=== PATIENT | female | born 1980 | race Caucasian/White ===

== ENCOUNTER 2019-06-07 15:23 | Inpatient (IN) | payer BC, MEDICAID ==
[2019-06-07] VITALS (16 sets, daily range): BP systolic 121–181; BP diastolic 76–98
[~2019-06-07] VITALS: Ht 160 cm; Wt 90.6 kg
--- NOTE | 2019-06-07 15:23 | NUR ---
ANA ROSA PALUMBO admitted to room 3319-1, with an admitting diagnosis of post dates , on 06/07/19 from home via ambulation, accompanied by s/o.ANA ROSA PALUMBO introduced to surroundings, call light, bed controls, phone, TV, temperature control, lights, meal times, smoking policy, visitor policy, side rail policy, bathrooms and showers. Patient Rights given to patient in the handbook. ANA ROSA PALUMBO verbalizes understanding that [facility] is not responsible for the loss or damage to any personal effects or valuables that are kept in the patients posession during their hospitalization. The following Patient Care Plans were discussed with the patient: Discharge Planning, pain management, labor plan of care. ANA ROSA PALUMBO verbalizes understanding of Interdisciplinary Patient Education. Patient and/or family were informed about the Rapid Response Team and its purpose.
[2019-06-07] MEDS ORDERED: MINERAL OIL CONCENTRATE 99.9% 15 ML UDC TOP PRN (17:30)
[2019-06-07 17:31] LABS: BASOPHILS % (AUTO) 0 % (0-10); EOSINOPHILS % (AUTO) 1 % (0-10); HEMATOCRIT 32 % (35-52); HEMOGLOBIN 10.6 G/DL (11.5-16.0); LYMPHOCYTES # (AUTO) 1.6 X 10^3 (1.0-4.0); LYMPHOCYTES % (AUTO) 19 % (12-44); MEAN CORPUSCULAR HEMOGLOBIN 30 PG (25-34); MEAN CORPUSCULAR HGB CONC 33 G/DL (32-36); MEAN CORPUSCULAR VOLUME 90 FL (80-99); MEAN PLATELET VOLUME 11.5 FL (7.4-10.4); MONOCYTES # (AUTO) 0.6 X 10^3 (0.0-1.0); MONOCYTES % (AUTO) 7 % (0-12); NEUTROPHILS # (AUTO) 6.4 X 10^3 (1.8-7.8); NEUTROPHILS % (AUTO) 74 % (42-75); PLATELET COUNT 219 10^3/uL (130-400); RED CELL DISTRIBUTION WIDTH 14.2 % (10.0-14.5); WHITE BLOOD COUNT 8.6 10^3/uL (4.3-11.0)
--- NOTE | 2019-06-07 19:21 | NUR ---
This RN called Dr. Escobar to confirm pitocin order without also starting maintenance fluids. Dr. Escobar voiced that it was against her medical advice but after voicing this concern to the patient, the patient still refused despite the provided education.
[2019-06-07] MEDS: OXYTOCIN/NORMAL SALINE 500 ML IV SCH (20:03)
[2019-06-07] MEDS: CATHETER FLUSH 10 ML SYR IV SCH (22:00)
[2019-06-08] VITALS (65 sets, daily range): BP systolic 114–190; BP diastolic 63–98
[2019-06-08] MEDS ORDERED: fentaNYL INJECTION 100 MCG/2 ML AMP ONE ×3 (00:05→11:07)
[2019-06-08] MEDS: fentaNYL INJECTION 100 MCG/2 ML AMP IVP PRN ×2 (00:09→15:59)
[2019-06-08] MEDS ORDERED: SUFENTA 0.6MCG/ML BUPIVA 0.125 100 ML ONE (00:45)
[2019-06-08] MEDS ORDERED: BUPIVACAINE 0.25% 30 ML (SENSORCAINE) VIAL ONE (01:12)
--- NOTE | 2019-06-08 01:18 | NUR ---
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 Procedure explained, consent reviewed and signed by anesthesia. Questions answered to patient's satisfaction. Time out taken to verify correct patient/procedure. Patient up to side of bed, assisted into sitting position. Betadine prep done x3 and sterile drape applied. Local done, see anesthesia record. Test dose given, see anesthesia record for drug and dosage. Epidural catheter secured in place. Epidural placement complete. Assisted back into bed, monitors adjusted. Epidural dosed, see anesthesia record. Epidural of Sufenta/Bupvicaine @___12___cc/hr stated per pump. Patient tolerated procedure well.
[2019-06-08] MEDS ORDERED: LACTATED RINGERS 1,000 ML IV SCH ×2 (01:25→11:24)
[2019-06-08] MEDS ORDERED: NALOXONE 0.4 MG/ML 1 ML (NARCAN) VIAL IV PRN ×2 (01:30)
[2019-06-08] MEDS ORDERED: METOCLOPRAMIDE INJ 10 MG/2 ML (REGLAN) IV PRN (01:30)
[2019-06-08] MEDS ORDERED: diphenhydrAMINE 50 MG/ML INJ (BENADRYL) IV PRN (01:30)
[2019-06-08] MEDS: EPIDURAL (SUFENTA 0.6MCG/ML BUPIVA 0.125%) 100 ML BAG EPI PRN ×2 (01:47→09:43)
[2019-06-08] MEDS ORDERED: ONDANSETRON 4 MG/2 ML (SDV) Z0FRAN ONE (02:27)
[2019-06-08] MEDS: ONDANSETRON 4 MG/2 ML (SDV) Z0FRAN IV PRN ×3 (02:30→16:00)
[2019-06-08] MEDS ORDERED: NS IV 1000 ML 1,000 ML ONE ×2 (03:14→18:41)
[2019-06-08] MEDS ORDERED: NS 100 ML (IVPB) BAG IR ONE (03:15)
[2019-06-08] MEDS: NS 100 ML (IVPB) BAG IR SCH ×2 (03:21→08:30)
--- NOTE | 2019-06-08 07:10 | NUR ---
Dr. Escobar notified of additional position changes but baby not able to tolerate. En route to hospital. Orders received to turn pitocin off.
[2019-06-08] MEDS ORDERED: CITRIC ACID/SOB CIT (BICITRA) 30 ML UDC ONE (10:46)
[2019-06-08] MEDS ORDERED: FAMOTIDINE 20MG/2ML IV (PEPCID) ONE (10:46)
[2019-06-08] MEDS ORDERED: ceFAZolin 2 GM IV Premixed 50 ML ONE (10:58)
--- NOTE | 2019-06-08 11:03 | Progress Note-Pre Operative ---
Pre-Operative Progress Note H&P Reviewed The H&P was reviewed, patient examined and no changes noted. Date Seen by Provider: Jun 08, 2019 Time Seen by Provider: 11:00 Date H&P Reviewed: Jun 08, 2019 Time H&P Reviewed: 10:45 Pre-Operative Diagnosis: Intrauteirne Pregnanct at 40 5/7 weeks 2. Secondary Arrest of MARI Rangel DO Jun 08, 2019 11:03 POS
--- NOTE | 2019-06-08 11:03 | History & Physical-OB ---
OB - Chief Complaint & HPI Date/Time Date of Admission: Date of Admission: Jun 07, 2019 at 15:23 Date seen by a Provider: Jun 07, 2019 Time Seen by a Provider: 16:00 Chief Complaint/History OB-Reason for Admission/Chief: Induction of Labor Hx : 7 Hx Para: 1 Expected Date of Delivery: May 27, 2019 Gestational Age in Weeks: 41 Gestational Age in Days: 4 Indication for induction: post dates Admission Nurse Assessment Rev: Yes Allergies and Home Medications Allergies Coded Allergies: No Known Drug Allergies (Unverified , 06/07/19) Patient Home Medication List Home Medication List Reviewed: Yes OB - History Hx of Present Ultrasounds: Normal mid trimester US Obstetrical Complications: None Medical Complications: None Patient Past Medical History hypothyroidism Social History/Family History Recent Infectious Disease Expo: No Alcohol Use: Denies Use Recreational Drug Use: No Immunizations Hepatitis A: Yes Hepatitis B: Yes OB - Admission Exam Physical Exam Vitals: Vital Signs 06/08/19 06/08/19 06/08/19 06/08/19 01:00 02:27 09:36 09:51 Temp 36.1 Pulse 67 Resp 18 B/P (MAP) 145/86 (105) Pulse Ox 99 O2 Delivery Room Air O2 Flow Rate 10.00 HEENT: NCAT Lungs: Clear Abdomen: Gravid Extremities: Normal Reflexes: Normal Cervical Dilatation: 7cm Effacement: 50% Station: -2 Membranes: Intact Amniotic Fluid: Clear Heart Rate: 140's Accelerations: Accelerations Present Decelerations: Variable Decelerations Short Term Variability: Present Nat Instructor Variability: Average (6-25) Contractions on Admission: < 5 Minutes Apart Labs Laboratory Tests Test 06/07/19 15:38 Range/Units White Blood Count 8.6 4.3-11.0 10^3/uL Red Blood Count 3.58 L 4.35-5.85 10^6/uL Hemoglobin 10.6 L 11.5-16.0 G/DL Hematocrit 32 L 35-52 % Mean Corpuscular Volume 90 80-99 FL Mean Corpuscular Hemoglobin 30 25-34 PG Mean Corpuscular Hemoglobin Concent 33 32-36 G/DL Red Cell Distribution Width 14.2 10.0-14.5 % Platelet Count 219 130-400 10^3/uL Mean Platelet Volume 11.5 H 7.4-10.4 FL Neutrophils (%) (Auto) 74 42-75 % Lymphocytes (%) (Auto) 19 12-44 % Monocytes (%) (Auto) 7 0-12 % Eosinophils (%) (Auto) 1 0-10 % Basophils (%) (Auto) 0 0-10 % Neutrophils # (Auto) 6.4 1.8-7.8 X 10^3 Lymphocytes # (Auto) 1.6 1.0-4.0 X 10^3 Monocytes # (Auto) 0.6 0.0-1.0 X 10^3 Eosinophils # (Auto) 0.0 0.0-0.3 10^3/uL Basophils # (Auto) 0.0 0.0-0.1 10^3/uL OB - Assessment/Plan/Diagnosis Assessment Admission Dx Induction of labor at 41 4/7 wga. Admission Status: Inpatient Order (span 2 midnights) Reason for Inpatient Admission: Induction of labor. Plan Induction Method: AROM Other Plan Rupture of membranes. Initiate pitocin if failure to progress. 06/08- Failure to progress with variable decels despite changing position. I suspect OP position with large for gestational age infant. Consult Dr. Garcia for . Patient and agreeable. DENTON AGUILAR MD Jun 08, 2019 11:03 POS
[2019-06-08] MEDS ORDERED: LIDOCAINE PF 2% 5 ML (XYLOCAINE) VIAL ONE (11:07)
--- NOTE | 2019-06-08 11:27 | NUR ---
REFER TO LABOR FLOW SHEET.
[2019-06-08] MEDS ORDERED: BUPIVACAINE 0.5% 30 ML (SENSORCAINE) VIAL ONE (11:30)
[2019-06-08] MEDS ORDERED: METOCLOPRAMIDE INJ 10 MG/2 ML (REGLAN) IV ONE (11:30)
[2019-06-08] MEDS ORDERED: FAMOTIDINE 20MG/2ML IV (PEPCID) IV ONE (11:30)
[2019-06-08] MEDS ORDERED: CITRIC ACID/SOB CIT (BICITRA) 30 ML UDC PO ONE (11:30)
[2019-06-08] MEDS ORDERED: KETAMINE/NaCl 50 MG/5 ML SYRINGE (ED ONLY) ONE (11:45)
[2019-06-08] MEDS ORDERED: KETOROLAC 30 MG/ML VIAL ONE (12:04)
--- NOTE | 2019-06-08 12:57 | Operative Report ---
Operative Report Date of Procedure/Surgery Jun 08, 2019 Surgeon (s) MARI TAVAREZ DO Interim Controller (s): Hilda Frank (MS 3) Post-Operative Diagnosis Intrauterine at 41 5/7 weeks 2. Secondary Arrest of Dilation 3. Repetitive Variable Decelerations 4. Persistent Occiput Posterior Procedure Performed Primary Low Transverse Description of Procedure Anesthesia Type: EPI Estimated blood loss (mL): 700 ml Specimen(s) collected/removed Placenta Description of the Procedure Ms. Shepard was taken to the Operating Room with IV fluids running. Once in the OR, she was prepped and draped in the normal sterile fashion. Anesthesia was tested and found to be adequate. A pfannesteil skin incision was made and carried down to the underlying layer of the fascia. The fascia was nicked in the midline, extended laterally. The fascia was elevated and the rectus muscle was dissected off sharply. Then, the rectus was in the midline. The parietal peritoneum was entered sharply and extended superiorly and inferiorly. The vesicouterine peritoneum was identified and entered sharply and extended laterally. The bladder flap was created digitally. The bladder blade was inserted. A transverse incision was made on the lower uterine segment and extended laterally. The vertex was in a LOP presentation, delivered and orally and nasally suctioned immediately. A viable male infant delivered without complications. The cord was doubly clamped and cut. [place] handed off to the waiting Pediatric Caregiver where NRP protocol was followed. Cord blood was obtained. The placenta was manually extracted. The uterus was exteriorized and cleared of all clots and debris. The uterine incision was first closed with a 0-Vicryl in a running locked fashion. Then a second suture of the same type was placed as an imbricating layer. The vesicouterine peritoneum was approximated with 3-0 Vicryl. There was a small uterine fibroid noted on the posterior aspect of the uterus--it was excised and 0-Vicryl figure of eight stitch was placed. Surgi-seal was placed on this area. The uterus was returned to the pelvic cavity. The parietal peritoneum was closed with 3-0 Vicryl. The fascia was approximated with 0-Vicryl. The subcutaneous tissues were closed with 3-0 Plain Gut. The skin was approximated with 4-0 Monocryl in a subcuticular manner. A sterile bandage was applied. Sponge, instrument, and needle counts were correct x 3. Both mom and were stable. Findings of the Procedure A viable male in LOP presentation . 9,9. Weight 8 lb 13 oz. EBS 700 ml. IV Fluids 500 ml. Urine Output 100 ml. Allergies and Home Medications Allergies Coded Allergies: codeine (Verified Allergy, Unknown, 06/08/19) iodine (Verified Allergy, Unknown, 06/08/19) Patient Home Medication List Home Medication List Reviewed: Yes MARI TAVAREZ DO Jun 08, 2019 12:57 POS
--- NOTE | 2019-06-08 13:57 | NUR ---
ANA ROSA ROBERTS presented to [facility] via BED from [place], accompanied by THIS RN AND S/O AFTER HAVING A PRIMARY DELIVERY. ANA ROSA ROBERTS oriented to bed controls, call light, TV, heat, and A/C controls. IV TUBING CONVERTED TO PUMP TUBING, SCDS ON CALVES BILATERALLY. MONTES TO D/D.
--- NOTE | 2019-06-08 14:15 | NUR ---
FFU/0, MODERATE VAG FLOW, NO CLOTS. VISITORS TO BEDSIDE. CALL LIGHT WITHIN REACH.
[2019-06-08] MEDS: OXYTOCIN/NORMAL SALINE 500 ML IV SCH (15:44)
[2019-06-08] MEDS ORDERED: OXYTOCIN/NORMAL SALINE 500 ML IV SCH (16:49)
[2019-06-08] MEDS ORDERED: fentaNYL INJECTION 100 MCG/2 ML AMP IVP PRN (17:00)
[2019-06-08] MEDS ORDERED: TETANUS,DIPTH,PERTUSS P/F (BOOSTRIX) 0.5 ML VIAL IM SCH (17:00)
[2019-06-08] MEDS ORDERED: MEASLES,MUMPS,RUBELLA 1 EA INJ SC SCH (17:00)
[2019-06-08] MEDS ORDERED: ONDANSETRON 4 MG/2 ML (SDV) Z0FRAN IVP PRN (17:00)
[2019-06-08] MEDS: KETOROLAC 30 MG/ML VIAL IV SCH (18:27)
[2019-06-08] MEDS: METOCLOPRAMIDE 10 MG (REGLAN) TAB PO SCH (19:32)
[2019-06-08] MEDS: ACETAMINOPHEN 500 MG TAB (TYLENOL) PO SCH (19:32)
[2019-06-08] MEDS: DOCUSATE SODIUM 100 MG (COLACE) CAP PO SCH (19:32)
[2019-06-08] MEDS: NS IV 1000 ML 1,000 ML IV SCH (20:08)
[2019-06-08] MEDS: LACTATED RINGERS 1,000 ML IV SCH (21:01)
[2019-06-08] MEDS: CATHETER FLUSH 10 ML SYR IV SCH ×3 (21:01→22:46)
[2019-06-09] VITALS (10 sets, daily range): BP systolic 118–160; BP diastolic 58–95
[2019-06-09] MEDS: NS IV 1000 ML 1,000 ML IV SCH (00:11)
[2019-06-09] MEDS: KETOROLAC 30 MG/ML VIAL IV SCH ×3 (00:12→14:12)
[2019-06-09] MEDS: METOCLOPRAMIDE 10 MG (REGLAN) TAB PO SCH ×4 (00:18→20:59)
[2019-06-09] MEDS: ACETAMINOPHEN 500 MG TAB (TYLENOL) PO SCH ×4 (00:18→20:21)
[2019-06-09] MEDS: LACTATED RINGERS 1,000 ML IV SCH (04:13)
[2019-06-09] MEDS ORDERED: BISACODYL 10 MG SUPP (DULCOLAX) PR ONE (05:00)
[2019-06-09] MEDS ORDERED: MILK OF MAGNESIA 400 MG/5 ML 30 ML UDC PO ONE (05:00)
[2019-06-09 05:39] LABS: BASOPHILS % (AUTO) 0 % (0-10); EOSINOPHILS % (AUTO) 1 % (0-10); LYMPHOCYTES # (AUTO) 1.2 X 10^3 (1.0-4.0); LYMPHOCYTES % (AUTO) 18 % (12-44); MEAN CORPUSCULAR HEMOGLOBIN 30 PG (25-34); MEAN CORPUSCULAR HGB CONC 33 G/DL (32-36); MEAN CORPUSCULAR VOLUME 91 FL (80-99); MEAN PLATELET VOLUME 9.7 FL (7.4-10.4); MONOCYTES # (AUTO) 0.4 X 10^3 (0.0-1.0); MONOCYTES % (AUTO) 6 % (0-12); NEUTROPHILS # (AUTO) 5.2 X 10^3 (1.8-7.8); NEUTROPHILS % (AUTO) 75 % (42-75); PLATELET COUNT 157 10^3/uL (130-400); RED CELL DISTRIBUTION WIDTH 14.2 % (10.0-14.5); WHITE BLOOD COUNT 6.9 10^3/uL (4.3-11.0)
[2019-06-09 05:43] LABS: HEMATOCRIT 20 % (35-52); HEMOGLOBIN 6.6 G/DL (11.5-16.0)
[2019-06-09] MEDS: CATHETER FLUSH 10 ML SYR IV SCH ×2 (06:58)
[2019-06-09] MEDS ORDERED: NS IV 500 ML 500 ML ONE (07:26)
[2019-06-09] MEDS: DOCUSATE SODIUM 100 MG (COLACE) CAP PO SCH ×2 (09:00→21:00)
--- NOTE | 2019-06-09 09:31 | Progress Note ---
Standard Progress Note Progress Notes/Assess & Plan Date Seen by a Provider: Jun 09, 2019 Time Seen by a Provider: 09:20 Progress/Assessment & Plan Subjective: Ms. Shepard is POD#1 from a Primary Low Transverse . She admits to being very sore in her lower abdomen. Otherwise, she states that she is doing well. Admits to moving her bowels. Objective: Vital signs are stable. Hemoglobin is low 6.7 Heart: Regular rate and rhythm without appreciable murmur Lungs: Clear to auscultation bilaterally with good respiratory effort Abdomen: Good bowel sounds, moderate tenderness, no rebound--some guarding especially on the left side, incision is clean, dry and well approximated Extremities: No cyanosis or clubbing. Minimal lower extremity edema Assessment: POD#1 Primary Low Transverse 2. Acute Blood Loss Anemia Plan: Ms. Shepard is being transfused 2 units of PRBC. We will recheck her Hemoglobin after transfusion and tomorrow. We will advance her to a Regular Diet. Start her on oral pain medication. Have her ambulate and shower. MARI TAVAREZ DO Jun 09, 2019 09:31 POS
--- NOTE | 2019-06-09 09:57 | Anesthesia-Regional Post-Op ---
Regional Patient Condition Mental Status: Alert, Oriented x3 Circulation: Same as Pre-Op Headache: Absent Sensation: Full Recovery Motor Block: Absent Post Op Complications Complications None Follow Up Care/Instructions Patient Instructions None needed. Anesthesia/Patient Condition Patient is doing well, no complaints, stable vital signs, no apparent adverse anesthesia problems. No complications reported per nursing. JAHAIRA LOZANO CRNA Jun 09, 2019 09:57 POS
--- NOTE | 2019-06-09 10:55 | NUR ---
DR. AGUILAR AT PT'S BEDSIDE, DISCUSSING POC. PT HAS REFUSED RHOGAM.
--- NOTE | 2019-06-09 11:10 | NUR ---
INITIAL PHYSICAL ASSESSMENT COMPLETED; SEE INTERVENTION FOR FURTHER. PT UP TO THE BATHROOM, + VOID. PT UP TO THE CHAIR. NEW GOWN ON. S/O AT THE BEDSIDE. 2ND UNIT OF BLOOD INFUSING.
--- NOTE | 2019-06-09 12:40 | NUR ---
PT HAS VISITORS AT THE BEDSIDE. 2ND UNIT COMPLETED.
--- NOTE | 2019-06-09 14:20 | NUR ---
PT , IV SALINE LOCKED AT THIS TIME.
[2019-06-09 14:28] LABS: HEMOGLOBIN 8.7 G/DL (11.5-16.0)
--- NOTE | 2019-06-09 20:30 | NUR ---
Pt sitting up in bed. assessment completed. pt denies any needs at this time. will continue to monitor.
[2019-06-09] MEDS: IBUPROFEN 800 MG (MOTRIN) TAB PO SCH (22:39)
[2019-06-10] MEDS: METOCLOPRAMIDE 10 MG (REGLAN) TAB PO SCH ×2 (01:52→14:17)
[2019-06-10] MEDS: ACETAMINOPHEN 500 MG TAB (TYLENOL) PO SCH ×2 (02:32→09:35)
[2019-06-10 02:35] VITALS: BP 159/87
[2019-06-10 06:17] LABS: HEMOGLOBIN 8.5 G/DL (11.5-16.0)
--- NOTE | 2019-06-10 07:00 | NUR ---
REPORT FROM EUSEBIO BOJORQUEZ.
--- NOTE | 2019-06-10 07:10 | NUR ---
DR TAVAREZ HERE NEW ORDERS RECEIVED FOR DISCHARGE HOME.
[2019-06-10] MEDS ORDERED: DOCU100C37 PO (07:51)
[2019-06-10] MEDS ORDERED: ACET-77 PO (07:51)
[2019-06-10] MEDS ORDERED: OXC5T PO (07:51)
[2019-06-10] MEDS ORDERED: IBUP-1780 PO (07:51)
--- NOTE | 2019-06-10 08:00 | Discharge Summary ---
Diagnosis/Chief Complaint Date of Admission Jun 07, 2019 at 15:23 Date of Discharge June 10, 2019 Discharge Date: Jun 10, 2019 Discharge Time: 09:00 Admission Diagnosis Admission Diagnosis Intrauterine at 41 5/7 weeks Discharge Diagnosis Intrauterine at 41 5/7 weeks 2. Secondary Arrest of Dilation 3. Persistent Occiput Posterior Reason Hospital Visit Onset of labor at 41+ weeks Discharge Summary Hospital Course Was the Problem List Reviewed?: Yes Hospital Course Ms. Shepard, a patient of Dr. Mancia, was admitted for the onset of labor. Once admitted her labor was augmented with Pitocin. She was noted to have repetitive variable decelerations. After no cervical exchange floor manager six hours it decided that Ms. Shepard would best be served with a . The procedure was performed--which resulted in a healthy, viable . On the day of surgery she was given oral and IV pain medications, which kept her comfortable. On POD#1, Ms. Chaviras Hemoglobin was 6.7. Consequently, she was transfused two units of packed RBC. Her vital signs remained stable throughout her hospitalization. POD#2 found Ms. Shepard ambulating, moving her bowels, tolerating a Regular Diet, voiding freely and controlling her pain with oral medications. she admits to feeling good. I will discharge her to home with instructions, prescriptions, and a follow up appointment. Labs Laboratory Tests 06/07/19 15:38: Red Blood Count 3.58L, Hemoglobin 10.6L, Hematocrit 32L, Mean Platelet Volume 11.5H 06/09/19 05:31: Red Blood Count 2.19L, Hemoglobin 6.6#*L, Hematocrit 20*L 06/09/19 14:20: Hemoglobin 8.7#L, Hematocrit 26L 06/10/19 06:10: Hemoglobin 8.5L, Hematocrit 26L Procedures None. Discharge Physical Examination Allergies: Coded Allergies: codeine (Verified Allergy, Unknown, 06/08/19) iodine (Verified Allergy, Unknown, 06/08/19) Vitals & I&Os Vital Signs Date Time Temp Pulse Resp B/P (MAP) Pulse Ox O2 Delivery O2 Flow Rate FiO2 06/10/19 02:35 36.5 75 18 159/87 (111) 95 Room Air 06/08/19 01:00 10.00 General Appearance: Alert, Oriented X3, Cooperative HEENT: Atraumatic Respiratory: Clear to Auscultation, Normal Air Movement Cardiovascular: Regular Rate, No Murmurs Abdominal: Normal Bowel Sounds Extremities: No Clubbing, No Cyanosis Skin: No Rashes Neuro: Normal Gait, Normal Speech Psych/Mental Status: Mental Status NL Discharge Home Medications Reviewed and agree with Discharge Medication list on patient's Discharge Instruction sheet Instructions to Patient/Family Please see electronic discharge instructions given to patient. Clinical Quality Measures DVT/VTE Risk/Contraindication: Risk Factor Score Per Nursin RFS Level Per Nursing on Admit: 2=Moderate MARI TAVAREZ DO Jun 10, 2019 08:00 POS
[2019-06-10 09:30] VITALS: BP 186/95
--- NOTE | 2019-06-10 09:30 | NUR ---
INITIAL ASSESSMENT COMPLETED, VS TAKEN, SEE INTERVENTIONS FOR DETAILED ASSESSMENTS, PT REFUSES SHOWER THIS AM, PT DENIES HEADACHE, BLURRY VISION, INCREASED SWELLING, EPIGASTRIC PAIN, REFLEXES NORMAL. EDUCATED PT AGAIN ABOUT RHOGAM ADMINISTRATION AND RISKS OF NOT RECEIVING ALONG WITH RUBELLA AND FLU VACCINE, PT STILL REFUSES TO RECEIVE RHOGAM, FLU OR RUBELLA VACCINE. AWARE OF THIS.
[2019-06-10] MEDS: IBUPROFEN 800 MG (MOTRIN) TAB PO SCH (09:35)
--- NOTE | 2019-06-10 09:35 | NUR ---
DR TAVAREZ CALLED ABOUT PTS BP, NO NEW ORDERS RECEIVED.
--- NOTE | 2019-06-10 11:25 | NUR ---
D/C INSTRUCTIONS EXPLAINED TO PT, SIGNED, NO QUESTIONS OR CONCERNS NOTED, PT VERBALIZES UNDERSTANDING OF DISCHARGE INSTRUCTIONS AND FOLLOW UP CARE. EDUCATED PT ON WHEN TO RETURN TO ER IF SYMPTOMS ARISE FROM ELEVATED BLOOD PRESSURE, PT SCHEDULED FOR BP CHECK IN [address] TAVAREZ. PT VERBALIZES UNDERSTANDING.
--- NOTE | 2019-06-10 12:35 | NUR ---
PT DISCHARGED TO HOME, AMBULATED TO PRIVATE CAR WITH ASHLEY RN AT SIDE, SECURED IN REAR FACING CAR SEAT AND S/O AT SIDE.
[2019-06-10] MEDS: DOCUSATE SODIUM 100 MG (COLACE) CAP PO SCH (14:18)
== END 2019-06-10 12:35 | disposition home or self-care (01) | DRG 787 ==
LOC: LDRP 15:23
PROVIDERS: ADMIT Family Medicine; ATTEND Family Medicine
PROC: 10D00Z1 Extraction of Products of Conception, Low, Open Approach (ICD-10-PCS; principal; 2019-06-08 11:32)
DX: O64.0XX0 Obstructed labor due to incomplete rotation of fetal head, not applicable or unspecified (principal); O76 Abnormality in fetal heart rate and rhythm complicating labor and delivery; O90.81 Anemia of the puerperium; D62 Acute posthemorrhagic anemia; O48.0 Post-term pregnancy; O62.1 Secondary uterine inertia; O99.284 Endocrine, nutritional and metabolic diseases complicating childbirth; E03.9 Hypothyroidism, unspecified; Z37.0 Single live birth; Z3A.41 41 weeks gestation of pregnancy
CPT/HCPCS: 36415; 85014; 85018; 85025; 86850; 86900; 86901; 86920; 94664

== ENCOUNTER → 2020-01-09 | Outpatient (CLI) | payer BC, MEDICAID ==
[~2020-01-09] MED LIST: ACET-78 PO; DOCU100C37 PO; IBUP-1780 PO; OXC5T PO
[2020-01-09 15:43] LABS: FREE T4 (FREE THYROXINE) 0.99 NG/DL (0.70-1.48)
== END ==
LOC: LAB FS 11:25
PROVIDERS: ATTEND Family Medicine
DX: E03.9 Hypothyroidism, unspecified (principal)
CPT/HCPCS: 36415; 84439; 84443

== ENCOUNTER → 2021-03-01 | Outpatient (CLI) | payer BC, MEDICAID ==
[2021-03-01 17:03] LABS: BASOPHILS % (AUTO) 1 % (0-10); EOSINOPHILS # (AUTO) 0.1 10^3/uL (0.0-0.3); EOSINOPHILS % (AUTO) 1 % (0-10); HEMATOCRIT 33 % (35-52); HEMOGLOBIN 10.8 G/DL (11.5-16.0); LYMPHOCYTES # (AUTO) 2.1 X 10^3 (1.0-4.0); LYMPHOCYTES % (AUTO) 24 % (12-44); MEAN CORPUSCULAR HEMOGLOBIN 28 PG (25-34); MEAN CORPUSCULAR HGB CONC 32 G/DL (32-36); MEAN CORPUSCULAR VOLUME 87 FL (80-99); MEAN PLATELET VOLUME 10.1 FL (7.4-10.4); MONOCYTES # (AUTO) 0.4 X 10^3 (0.0-1.0); MONOCYTES % (AUTO) 5 % (0-12); NEUTROPHILS # (AUTO) 6.1 X 10^3 (1.8-7.8); NEUTROPHILS % (AUTO) 70 % (42-75); PLATELET COUNT 328 10^3/uL (130-400); WHITE BLOOD COUNT 8.8 10^3/uL (4.3-11.0)
== END ==
LOC: LAB FS 13:49
PROVIDERS: ATTEND Family Medicine
DX: O20.0 Threatened abortion (principal)
CPT/HCPCS: 36415; 84702; 85025

== ENCOUNTER → 2021-03-03 | Outpatient (CLI) | payer BC, MEDICAID ==
[2021-03-03 14:40] LABS: BASOPHILS % (AUTO) 1 % (0-10); EOSINOPHILS % (AUTO) 1 % (0-10); HEMATOCRIT 26 % (35-52); HEMOGLOBIN 8.4 g/dL (11.5-16.0); LYMPHOCYTES % (AUTO) 25 % (12-44); MEAN CORPUSCULAR HEMOGLOBIN 28 pg (25-34); MEAN CORPUSCULAR HGB CONC 32 g/dL (32-36); MEAN CORPUSCULAR VOLUME 88 fL (80-99); MONOCYTES % (AUTO) 5 % (0-12); NEUTROPHILS % (AUTO) 69 % (42-75); PLATELET COUNT 270 10^3/uL (130-400)
[2021-03-03 14:42] LABS: EOSINOPHILS # (AUTO) 0.1 10^3/uL (0.0-0.3); MONOCYTES # (AUTO) 0.4 X 10^3 (0.0-1.0); NEUTROPHILS # (AUTO) 5.6 X 10^3 (1.8-7.8)
== END ==
LOC: LAB FS 14:21
PROVIDERS: ATTEND Family Medicine
DX: O20.0 Threatened abortion (principal)
CPT/HCPCS: 36415; 84702; 85025; 86850

== ENCOUNTER → 2021-03-08 | Outpatient (CLI) | payer BC, MEDICAID ==
[2021-03-08 12:53] LABS: WHITE BLOOD COUNT 7.9 10^3/uL (4.3-11.0)
[2021-03-08 12:54] LABS: BASOPHILS % (AUTO) 1 % (0-10); EOSINOPHILS # (AUTO) 0.1 10^3/uL (0.0-0.3); EOSINOPHILS % (AUTO) 1 % (0-10); HEMATOCRIT 27 % (35-52); HEMOGLOBIN 8.7 g/dL (11.5-16.0); LYMPHOCYTES # (AUTO) 1.8 X 10^3 (1.0-4.0); LYMPHOCYTES % (AUTO) 23 % (12-44); MEAN CORPUSCULAR HEMOGLOBIN 28 pg (25-34); MEAN CORPUSCULAR HGB CONC 32 g/dL (32-36); MEAN CORPUSCULAR VOLUME 89 fL (80-99); MEAN PLATELET VOLUME 9.7 fL (9.0-12.2); MONOCYTES # (AUTO) 0.4 X 10^3 (0.0-1.0); MONOCYTES % (AUTO) 5 % (0-12); NEUTROPHILS # (AUTO) 5.5 X 10^3 (1.8-7.8); NEUTROPHILS % (AUTO) 69 % (42-75); PLATELET COUNT 362 10^3/uL (130-400)
== END ==
LOC: LAB FS 11:59
PROVIDERS: ATTEND Family Medicine
DX: Z87.59 Personal history of other complications of pregnancy, childbirth and the puerperium (principal)
CPT/HCPCS: 36415; 84702; 85025

== ENCOUNTER 2021-04-26 06:12 | Outpatient (CLI) | payer BC, MEDICAID ==
[~2021-04-26] VITALS: Ht 158 cm; Wt 86.4 kg
[2021-04-26] MEDS ORDERED: PANT40TA52 PO (10:07)
[2021-04-26] MEDS ORDERED: LEVO50TA6 PO (10:07)
[2021-04-27] MEDS ORDERED: IBUP-844 PO (08:51)
[2021-04-27] MEDS ORDERED: ACET-93 PO (08:51)
== END 2021-04-26 10:08 | disposition home or self-care (01) ==
LOC: PREOP 06:12
PROVIDERS: ATTEND Obstetrics & Gynecology
DX: Z01.818 Encounter for other preprocedural examination (principal)

== ENCOUNTER 2021-04-27 07:02 | Day surgery (SDC) | payer BC, MEDICAID ==
[2021-04-27] VITALS (10 sets, daily range): BP systolic 95–117; BP diastolic 60–83
[~2021-04-27] VITALS: Ht 158 cm; Wt 86.4 kg
[~2021-04-27 07:02] MED LIST changes: +LEVO50TA6 PO; +PANT40TA52 PO
[2021-04-27] MEDS ORDERED: ceFAZolin 2 GM IV Premixed 50 ML IV ONE (07:30)
[2021-04-27] MEDS ORDERED: LACTATED RINGERS 1,000 ML IV PRN (07:30)
--- NOTE | 2021-04-27 08:11 | Progress Note-Pre Operative ---
Pre-Operative Progress Note H&P Reviewed The H&P was reviewed, patient examined and no changes noted. Date Seen by Provider: Apr 27, 2021 Time Seen by Provider: 07:45 Date H&P Reviewed: Apr 27, 2021 Time H&P Reviewed: 07:45 Pre-Operative Diagnosis: post miscarriage bleeding/retained products/inappropriate decline in HCG LEELA ADAMS DO Apr 27, 2021 08:11
[2021-04-27] MEDS ORDERED: proPOfol 200 MG/20 ML (DIPRIVAN) VIAL IV ONE (08:27)
[2021-04-27] MEDS ORDERED: fentaNYL INJ 100 MCG/2 ML AMP ONE (08:27)
[2021-04-27] MEDS ORDERED: LIDOCAINE PF 2% 5 ML (XYLOCAINE) VIAL ONE (08:27)
[2021-04-27] MEDS ORDERED: ONDANSETRON 4 MG/2 ML (SDV) Z0FRAN ONE (08:27)
[2021-04-27] MEDS ORDERED: SEVOFLURANE (ULTANE) 15 ML INHAL SOLN ONE (08:27)
[2021-04-27] MEDS ORDERED: MIDAZOLAM 2 MG/2 ML (VERSED) VIAL ONE (08:27)
[2021-04-27] MEDS: metroNIDAZOLE 500MG/100ML IVPB 100 ML IV ONE ×2 (08:45→08:46)
--- NOTE | 2021-04-27 08:50 | Discharge Inst-Women's Service ---
Discharge Inst-Women's Serv Depart Medication/Instructions New, Converted or Re-Newed RX: Transmitted to Pharmacy Instructions expect spotting or light bleeding for another 7-10 days Final Diagnosis post miscarriage bleeding Problems Reviewed?: Yes Consults/Follow Up Additional Follow Up: Yes (1-2 weeks with Vciki) Activity Activity: Activity as Tolerated Driving Instructions: You May Drive NO SMOKING: NO SMOKING Nothing Inside Vagina: No Douching, No [place] (1 week), No Tampons Diet Discharge Diet: No Restrictions Symptoms to Report to : Bleeding Excessive, Pain Increased, Fever Over 101 Degrees F, Vaginal Bleeding Increase, Cramps in Feet or Legs, Vaginal Discharge Foul For Any Problems or Questions: Contact Your Physician LEELA ADAMS DO Apr 27, 2021 08:50
[2021-04-27] MEDS ORDERED: ACET-93 PO (08:51)
[2021-04-27] MEDS ORDERED: IBUP-844 PO (08:51)
[2021-04-27] MEDS ORDERED: KETOROLAC 30 MG/ML VIAL IVP ONE (09:00)
[2021-04-27] MEDS ORDERED: D5 LR IV SOLUTION 1,000 ML IV SCH (09:00)
[2021-04-27] MEDS ORDERED: ONDANSETRON 4 MG/2 ML (SDV) Z0FRAN IVP PRN ×2 (09:00→09:30)
[2021-04-27] MEDS ORDERED: ACETAMINOPHEN 500 MG TAB (TYLENOL) PO PRN (09:00)
[2021-04-27] MEDS ORDERED: KETOROLAC 30 MG/ML VIAL ONE (09:09)
--- NOTE | 2021-04-27 09:17 | Operative Report ---
Operative Report Date of Procedure/Surgery Apr 27, 2021 Surgeon (s) LEELA ADAMS DO Business Reporter (s): na Post-Operative Diagnosis POST MISCARRIAGE BLEEDING/RETAINED PRODUCTS OF CONCEPTION Procedure Performed DILATION AND CURETTAGE Description of Procedure Anesthesia Type: General Estimated blood loss (mL): 100 Specimen(s) collected/removed PRODUCTS OF CONCEPTION Description of the Procedure With informed consent the patient was taken to the operating room where general anesthetic was found to be adequate. She was then prepped and draped in the usual sterile fashion in the dorsolithotomy position. A straight catheter was used to catheterize her bladder and there was approximately 100 mL of clear yellow urine. She has a Betadine allergy through the vagina was prepped with surgical soap. A speculum was placed in the vagina and the cervix was grasped with a tenaculum. There was no active bleeding noted and the cervix was not dilated. The cervix was then gently dilated with Meng dilators. I then inserted a curette and did a curette until a gritty texture was heard. There was a moderate amount of what appeared to be placental type tissue noted. Did the curette until a gritty texture was heard. There was minimal postoperative bleeding noted. The patient was then awakened and taken to the recovery room in stable condition Sponge and instrument counts were correct x2. Findings of the Procedure SMALL-MODERATE AMOUNT OF PRODUCTS OF CONCEPTION Allergies and Home Medications Allergies Coded Allergies: codeine (Verified Allergy, Unknown, 06/08/19) iodine (Verified Allergy, Unknown, 06/08/19) Patient Home Medication List Home Medication List Reviewed: Yes Acetaminophen (Acetaminophen) 500 Mg Tablet, 1,000 MG PO Q8H PRN for PAIN-MILD (1-4) Prescribed by: LEELA ADAMS on 04/27/21 0851 Ibuprofen (Ibu) 600 Mg Tablet, 600 MG PO Q6HR Prescribed by: LEELA ADAMS on 04/27/21 0851 Levothyroxine Sodium (Levothyroxine Sodium) 50 Mcg Tablet, 50 MCG PO DAILY, (Reported) Entered as Reported by: ILANA BEJARANO on 04/26/21 1007 Pantoprazole Sodium (Pantoprazole Sodium) 40 Mg Tablet.dr, 40 MG PO DAILY, (Reported) Entered as Reported by: ILANA BEJARANO on 04/26/21 1007 Discontinued Medications Acetaminophen (Acetaminophen) 500 Mg Tablet, 1,000 MG PO Q6HR Discontinued Reason: No Longer Taking Prescribed by: MARI TAVAREZ on 06/10/19750 Docusate Sodium (Docusate Sodium) 100 Mg Capsule, 100 MG PO BID Discontinued Reason: No Longer Taking Prescribed by: MARI TAVAREZ on 06/10/19750 Ibuprofen (Ibuprofen) 800 Mg Tablet, 800 MG PO Q8H Discontinued Reason: No Longer Taking Prescribed by: MARI TAVAREZ on 06/10/19 075 Oxycodone Hcl (Oxycodone IR) 5 Mg Tab, 5 MG PO Q4HR PRN for To achieve TAG Discontinued Reason: No Longer Taking Prescribed by: MARI TAVAREZ on 06/10/19 075 LEELA ADAMS DO Apr 27, 2021 09:17
[2021-04-27] MEDS ORDERED: HYDROmorphone 2 MG/ML VIAL (DILAUDID) IV ONE (09:30)
[2021-04-27] MEDS ORDERED: ACETAMINOPHEN 500 MG TAB (TYLENOL) ONE (10:34)
[2021-04-27] MEDS ORDERED: IBUPROFEN 600 MG (MOTRIN) TAB PO SCH (12:00)
--- NOTE | 2021-04-27 13:25 | Anesthesia-General Post-Op ---
General Patient Condition Mental Status/LOC: Same as Preop Cardiovascular: Satisfactory Nausea/Vomiting: Absent Respiratory: Satisfactory Pain: Controlled Complications: Absent Post Op Complications Complications None Follow Up Care/Instructions Patient Instructions None needed. Anesthesia/Patient Condition Patient Condition Patient is doing well, no complaints, stable vital signs, no apparent adverse anesthesia problems. No complications reported per nursing. D/C home per [facility] Criteria: Yes ROBERT DUTTA CRNA Apr 27, 2021 13:25
== END 2021-04-27 11:25 | disposition home or self-care (01) ==
LOC: SDC 07:02
PROVIDERS: ATTEND Obstetrics & Gynecology
DX: N85.8 Other specified noninflammatory disorders of uterus (principal); N93.8 Other specified abnormal uterine and vaginal bleeding; N96 Recurrent pregnancy loss; E03.9 Hypothyroidism, unspecified; K21.9 Gastro-esophageal reflux disease without esophagitis; Z79.899 Other long term (current) drug therapy; Z79.1 Long term (current) use of non-steroidal anti-inflammatories (NSAID); Z87.891 Personal history of nicotine dependence; Z79.890 Hormone replacement therapy; Z87.59 Personal history of other complications of pregnancy, childbirth and the puerperium
CPT/HCPCS: 87081